=== PATIENT | male | born 1990 | race Caucasian/White ===

== ENCOUNTER 2019-01-15 06:15 | Day surgery (SDC) | payer BC ==
[2019-01-11 12:18] LABS: BASOPHIL % 0.4 % (0.0-0.2); EOSINOPHIL # 0.1 10^3/uL (0.0-0.2); EOSINOPHIL % 0.8 % (0.0-5.0); HEMOGLOBIN 16.7 g/dL (13.9-16.3); LYMPHOCYTES # 2.6 10^3/uL (1.0-4.8); LYMPHOCYTES % 33.3 % (24.0-44.0); MEAN CELL HGB 29.1 pg (26-34); MEAN CELL HGB CONCENTRATION 36.1 g/dL (33-37); MEAN CORP VOLUME 80.8 fL (78-100); MEAN PLATELET VOLUME 9.8 fL (7.8-11.0); MONOCYTES # 0.6 10^3/uL (0.3-0.8); MONOCYTES % 8.2 % (5.0-12.0); NEUTROPHIL # 4.4 10^3/uL (1.8-7.7); PLATELET COUNT 245 10^3/uL (150-400); RED CELL DISTRIBUTION WIDTH 12.9 % (11.5-14.5); WHITE BLOOD CELL 7.8 10^3/uL (4.5-11.0)
[~2019-01-15] VITALS: Ht 175.3 cm; Wt 99.8 kg
[2019-01-15] VITALS (13 sets, daily range): BP systolic 111–140; BP diastolic 70–93
[~2019-01-15 06:15] MED LIST: LACTATED RINGERS 1,000 ML IV SCH; LACTATED RINGERS 1,000 ML ONE; LEVAQUIN 100 ML IV ONE
[2019-01-15] MEDS ORDERED: SUBLIMAZE ONE ×2 (06:55→08:36)
[2019-01-15] MEDS ORDERED: DECADRON ONE (06:55)
[2019-01-15] MEDS ORDERED: ZOFRAN ONE (06:55)
[2019-01-15] MEDS ORDERED: DIPRIVAN IV ONE (06:55)
[2019-01-15] MEDS ORDERED: LIDOCAINE 2% VIAL ONE (06:55)
[2019-01-15] MEDS ORDERED: VERSED ONE (06:56)
[2019-01-15] MEDS ORDERED: TORADOL ONE (07:00)
[2019-01-15] MEDS ORDERED: SODIUM CHLORIDE IR ONE (07:07)
[2019-01-15] MEDS ORDERED: TYLENOL PO ONE (07:13)
[2019-01-15] MEDS ORDERED: ACET-685 PO (08:29)
[2019-01-15] MEDS ORDERED: CIPR500T86 PO (08:29)
[2019-01-15] MEDS ORDERED: SUBLIMAZE IV PRN (08:30)
[2019-01-15] MEDS ORDERED: LACTATED RINGERS 1,000 ML IV SCH (08:30)
[2019-01-15] MEDS ORDERED: BENADRYL IV PRN (08:30)
[2019-01-15] MEDS ORDERED: ZOFRAN IV PRN (08:30)
[2019-01-15] MEDS ORDERED: PHENERGAN IV PRN (08:30)
[2019-01-15] MEDS ORDERED: NORCO 7.5MG PO PRN (08:30)
--- NOTE | 2019-01-15 08:38 | OPH ---
DATE OF SURGERY: 01/15/2019 PREOPERATIVE DIAGNOSIS: Sterilization. FINAL DIAGNOSIS: Sterilization. PROCEDURE: Bilateral vasectomy. DESCRIPTION OF PROCEDURE: The patient was brought to the operating room, was put in supine position on the operating room table. After the patient was given satisfactory and adequate LMA general anesthesia, the genitalia and the scrotal area was then prepped and draped aseptically in the usual manner. First, the left scrotal region was palpated and the vas was easily palpated and this was brought up to near the surface of the left scrotal skin and the Allis clamp was placed in that area to isolate the vas. The skin incision was then done above the area of the vas, which was isolated and the incision was deepened up to subcutaneous tissue. The vas was easily noticed and a clamp was placed underneath it and then two clamps were placed on each side and the vas was excised. Both ends were fulgurated and then secured with 2-0 chromic catgut. After this was done, there was no bleeding noted and the scrotal skin incision was then approximated with the use of a 2-0 chromic catgut interrupted fashion. The same procedure was done on the right side. After isolating the vas bring it to the shoulder near the scrotal area, the Allis clamp was placed around it and then incision was done on the skin above the vas area and then after dissection, the vas was isolated. Two clamps were placed in the area of the vas and the portion was then excised. Both ends were then fulgurated and sutured with 2-0 chromic catgut. After this was done, the scrotal skin incision was approximated with the use of 2-0 chromic catgut in interrupted fashion. Dressing was applied. The procedure was terminated. The patient was then awakened, was transferred to the recovery room in stable condition. Sherwin Cunningham MD DR: LISE/deena JOB# [id number]
[2019-01-15] MEDS ORDERED: LACTATED RINGERS 1,000 ML ONE (08:39)
[2019-01-15] MEDS ORDERED: NORCO 7.5MG PO ONE (08:57)
== END 2019-01-15 10:45 | disposition home or self-care (01) ==
LOC: SURG 06:15
PROVIDERS: ATTEND Urology
DX: Z30.2 Encounter for sterilization (principal); E66.9 Obesity, unspecified; Z68.32 Body mass index [BMI] 32.0-32.9, adult; Z79.01 Long term (current) use of anticoagulants; Z79.2 Long term (current) use of antibiotics; Z82.49 Family history of ischemic heart disease and other diseases of the circulatory system
CPT/HCPCS: 36415; 55250; 85025; 85610; 85730; 88302; A4217; A4649; A9150; J1100; J1885; J1956 ×2; J2001; J2250; J2405; J3010 ×2; J3490; J7120 ×2